=== PATIENT | female | born 1995 | race Caucasian/White ===

== ENCOUNTER 2022-06-13 10:35 | Observation (INO) | payer MEDICAID ==
[~2022-06-13] VITALS: Ht 157.5 cm; Wt 110.7 kg
[2022-06-13 11:53] LABS: BASOPHILS % 0.3 % (0.0-2.0); EOSINOPHILS % 0.5 % (0.0-5.0); HEMOGLOBIN. 12.9 g/dL (12.0-16.0); LYMPHOCYTES % 21.1 % (20.0-50.0); MEAN CORPUSCULAR HEMOGLOBIN 29.9 pg (28.0-32.0); MEAN CORPUSCULAR VOLUME 90.6 fL (81.0-99.0); MEAN PLATELET VOLUME 8.7 fl (7.4-10.4); MONOCYTES % 6.2 % (2.0-8.0); NEUTROPHILS % 71.9 % (40.0-76.0); PLATELET 309 x1000/uL (130-400); RED BLOOD CELL COUNT 4.31 mill/uL (4.2-5.4); RED CELL DISTRIBUTION WIDTH 13.8 % (11.6-14.6)
[2022-06-13] MEDS ORDERED: PREN1TAB78 MT (12:17)
[2022-06-13 12:33] LABS: CHLORIDE 106 mEq/L (98-107)
== END 2022-06-13 12:50 | disposition home or self-care (01) ==
LOC: 8 EST LDRP 10:35
PROVIDERS: ADMIT Obstetrics & Gynecology; ATTEND Obstetrics & Gynecology
DX: O26.893 Other specified pregnancy related conditions, third trimester (principal); L29.9 Pruritus, unspecified; Z3A.32 32 weeks gestation of pregnancy; Z98.891 History of uterine scar from previous surgery
CPT/HCPCS: 36415; 59025; 76705; 76805; 76818; 80053; 82239; 85025; G0378; 99281; G0379

== ENCOUNTER 2022-06-22 09:11 | Observation (INO) | payer MEDICAID ==
[~2022-06-22] VITALS: Ht 157.5 cm; Wt 111.1 kg
[~2022-06-22 09:11] MED LIST: PREN1TAB78 MT
== END 2022-06-22 10:28 | disposition home or self-care (01) ==
LOC: 8 EST A/PP 09:11
PROVIDERS: ADMIT Obstetrics & Gynecology; ATTEND Obstetrics & Gynecology
DX: O26.893 Other specified pregnancy related conditions, third trimester (principal); L29.9 Pruritus, unspecified; Z3A.33 33 weeks gestation of pregnancy
CPT/HCPCS: 59025; G0378; 99281